=== PATIENT | female | born 1980 | race Caucasian/White ===

== ENCOUNTER 2019-03-17 17:21 | Emergency (ER) | payer MEDICARE ==
[~2019-03-17 17:21] MED LIST: IBUP-2070 PO; PNV91TAB3 PO
== END 2019-03-17 17:48 | disposition home or self-care (01) ==
LOC: EDH 17:21
DX: I10 Essential (primary) hypertension (principal); F12.10 Cannabis abuse, uncomplicated; F90.9 Attention-deficit hyperactivity disorder, unspecified type; Z91.14 Patient's other noncompliance with medication regimen; Z72.0 Tobacco use; Z88.8 Allergy status to other drugs, medicaments and biological substances

== ENCOUNTER → 2024-04-28 | Outpatient (CLI) | payer OTHER, MEDICARE | END | disposition home or self-care (01) | LOC: RAH 14:11 | PROVIDERS: ATTEND Internal Medicine | DX: R92.332 Mammographic heterogeneous density, left breast (principal); N64.52 Nipple discharge; R92.30 Dense breasts, unspecified | CPT/HCPCS: 76641; 77066 ==